=== PATIENT | female | born 1955 | race Caucasian/White ===

== ENCOUNTER 2022-03-23 12:38 | Outpatient (CLI) | payer MEDICARE, BC | END 2022-03-23 12:39 | disposition home or self-care (01) | LOC: BICCT 12:38 | PROVIDERS: ATTEND Internal Medicine Cardiovascular Disease | DX: I77.810 Thoracic aortic ectasia (principal) | CPT/HCPCS: 71250 ==

== ENCOUNTER 2023-08-25 09:16 | Outpatient (CLI) | payer MEDICARE, BC | END 2023-08-25 09:17 | disposition home or self-care (01) | LOC: BICCT 09:16 | PROVIDERS: ATTEND Internal Medicine Cardiovascular Disease | DX: I77.810 Thoracic aortic ectasia (principal) | CPT/HCPCS: 71250 ==

== ENCOUNTER 2024-07-30 09:26 | Outpatient (CLI) | payer MEDICARE | END 2024-07-30 09:27 | disposition home or self-care (01) | LOC: BICCT 09:26 | PROVIDERS: ATTEND Nurse Practitioner Adult Health | DX: I77.819 Aortic ectasia, unspecified site (principal) | CPT/HCPCS: 71250 ==